=== PATIENT | female | born 1985 | race Caucasian/White ===

== ENCOUNTER 2018-11-27 00:53 | Emergency (ER) | payer MEDICARE ==
[~2018-11-27] VITALS: Ht 160 cm; Wt 113.6 kg
[2018-11-27 00:57] VITALS: BP 118/76; TEMP 97.6
[2018-11-27] MEDS ORDERED: LORYNA 3 MG-0.01 TAB PO (01:23)
[2018-11-27] MEDS ORDERED: CALCIUM 600MG+D1 TAB PO (01:24)
[2018-11-27] MEDS ORDERED: MULTI VITAMINS1 TAB PO (01:24)
[2018-11-27] MEDS ORDERED: B-121000 MCG PO (01:25)
[2018-11-27] MEDS ORDERED: MASON NATURAL2000 IU PO (01:25)
[2018-11-27] MEDS ORDERED: PROZAC60 MG PO (01:26)
[2018-11-27] MEDS ORDERED: ZANTAC 150MG T150 MG PO (01:26)
[2018-11-27] MEDS ORDERED: ADDERALL XR25 MG PO (01:26)
[2018-11-27] MEDS ORDERED: MIRAPEX0.5 MG PO (01:27)
[2018-11-27] MEDS ORDERED: CYTOMEL 5MC5 MCG/TAB PO (01:27)
[2018-11-27] MEDS ORDERED: INDERAL LA 60MG60 MG PO (01:27)
[2018-11-27] MEDS ORDERED: TOPAMAX 100MG100 M1 PO (01:28)
[2018-11-27] MEDS ORDERED: LIORESAL 1010 MG/TAB PO ×2 (01:28→01:34)
[2018-11-27] MEDS ORDERED: SYNTHROID0.2 MG/TAB PO (01:29)
[2018-11-27] MEDS ORDERED: SYNTHROID0.05 MG/TA PO (01:29)
[2018-11-27] MEDS ORDERED: NEXIUM 40MG40 MG PO (01:29)
[2018-11-27] MEDS ORDERED: CLARITIN 1010 MG/TAB PO (01:30)
[2018-11-27] MEDS ORDERED: MAGNESIUM500 MG PO (01:30)
[2018-11-27] MEDS ORDERED: KLONOPIN 1MG1 MG PO (01:30)
[2018-11-27] MEDS ORDERED: REGLAN 5MG T5 MG/TAB PO (01:31)
[2018-11-27] MEDS ORDERED: MELATONIN5 M1 SL (01:31)
[2018-11-27] MEDS ORDERED: APRESOLINE50 MG PO (01:33)
[2018-11-27] MEDS ORDERED: XANAX 1MG1 MG PO (01:33)
[2018-11-27] MEDS ORDERED: TYLENOL 500MG500 MG PO (01:34)
[2018-11-27] MEDS ORDERED: PHENERGAN 25 TA25 MG PO (01:35)
[2018-11-27] MEDS ORDERED: BENADRYL25 M2 PO (01:35)
[2018-11-27 03:05] LABS: COLLECTION METHOD CLEAN CATCH
[2018-11-27 03:28] LABS: PH 6 (5-8); SQUAMOUS EPITHELIAL 0-2 /hpf; URINE APPEARANCE Clear; URINE BACTERIA Rare /hpf; URINE BILIRUBIN Negative (NEGATIVE); URINE BLOOD 2+ (NEGATIVE); URINE COLOR Straw; URINE GLUCOSE Negative (NEGATIVE); URINE KETONE Negative (NEGATIVE); URINE LEUKOCYTE ESTERASE Negative (NEGATIVE); URINE NITRATE Negative (NEGATIVE); URINE PROTEIN(semi-quant) Negative (NEGATIVE); URINE RBC None Seen /hpf; URINE UROBILINOGEN Negative (NEGATIVE)
[2018-11-27] MEDS ORDERED: MACROBID 1100 MG/CAP PO (03:59)
[2018-11-27] MEDS ORDERED: PYRIDIUM200 M1 PO (03:59)
[2018-11-27 04:19] VITALS: PULSE 80
== END 2018-11-27 04:19 | disposition home or self-care (01) ==
LOC: COL.ER 00:53
PROVIDERS: Emergency Medicine
DX: R30.0 Dysuria (principal); F41.9 Anxiety disorder, unspecified; Z90.49 Acquired absence of other specified parts of digestive tract

== ENCOUNTER → 2021-10-18 | Outpatient (CLI) | payer MEDICARE ==
[~2021-10-18] MED LIST: ADDERALL XR25 MG PO; APRESOLINE50 MG PO; B-121000 MCG PO; BENADRYL25 M2 PO; CALCIUM 600MG+D1 TAB PO; CLARITIN 1010 MG/TAB PO; CYTOMEL 5MC5 MCG/TAB PO; INDERAL LA 60MG60 MG PO; KLONOPIN 1MG1 MG PO; LIORESAL 1010 MG/TAB PO; LORYNA 3 MG-0.01 TAB PO; MACROBID 1100 MG/CAP PO; MAGNESIUM500 MG PO; MASON NATURAL2000 IU PO; MELATONIN5 M1 SL; MIRAPEX0.5 MG PO; MULTI VITAMINS1 TAB PO; NEXIUM 40MG40 MG PO; PHENERGAN 25 TA25 MG PO; PROZAC60 MG PO; PYRIDIUM200 M1 PO; REGLAN 5MG T5 MG/TAB PO; SYNTHROID0.05 MG/TA PO; SYNTHROID0.2 MG/TAB PO; TOPAMAX 100MG100 M1 PO; TYLENOL 500MG500 MG PO; XANAX 1MG1 MG PO; ZANTAC 150MG T150 MG PO
[2021-10-18 13:07] LABS: HEMATOCRIT 42.3 % (37.0-47.0); HEMOGLOBIN 13.7 g/dl (12.5-16.0); MEAN CELL VOLUME 93 fl (80.0-100.0); MEAN CORPUSCULAR HEMOGLOBIN 30 pg (27-31); MEAN CORPUSCULAR HGB CONC 32 g/dl (33.0-37.0); MEAN PLATELET VOLUME 9.7 fl (7.4-10.4); PLATELET COUNT 285 K/mm3 (130-400); RED BLOOD COUNT 4.55 M/mm3 (4.10-5.30); REDCELL DISTRIBUTION WIDTH-CV 12.8 % (11.5-14.5)
[2021-10-18 13:20] LABS: ALBUMIN 3.2 gm/dL (3.5-5.0); BILIRUBIN,TOTAL 0.3 mg/dL (0.2-1.2); CALCIUM 8.8 mg/dL (8.4-10.2); CHOLESTEROL RISK RATIO 3.4; CREATININE, serum 0.89 mg/dL (0.57-1.11); POTASSIUM 3.9 mmol/L (3.5-4.5); TOTAL PROTEIN 7.3 gm/dL (6.2-8.1)
[2021-10-18 13:39] LABS: THYROID STIMULATING HORMONE 1.35 uIU/mL (0.350-4.940)
== END ==
LOC: COL.LAB 12:14
DX: I10 Essential (primary) hypertension (principal); E03.9 Hypothyroidism, unspecified; E66.01 Morbid (severe) obesity due to excess calories

== ENCOUNTER → 2021-11-03 | Outpatient (CLI) | payer MEDICARE | LOC: COL.RAD 07:40 | DX: K76.0 Fatty (change of) liver, not elsewhere classified (principal); Z90.49 Acquired absence of other specified parts of digestive tract ==

== ENCOUNTER 2022-10-18 10:24 | Day surgery (SDC) | payer MEDICARE ==
[~2022-10-18] VITALS: Ht 162.6 cm; Wt 113.1 kg
[2022-10-18] MEDS ORDERED: COMPAZINE 110 MG/TAB PO (10:54)
[2022-10-18 11:35] VITALS: BP 130/66; PULSE 72; TEMP 98.7
[2022-10-18 11:50] VITALS: BP 115/75; PULSE 72
[2022-10-18 12:05] VITALS: BP 110/65; PULSE 72
--- NOTE | 2022-10-18 12:15 | NUR ---
1135 RETURNS TO ROOM 5 PER CART. AWAKE, ALERT. AMBULATES TO RECLINER WITH STANDBY ASSIST. RESP UNLABORED. DENIES ABD PAIN, NAUSEA OR DYSPHAGIA. VITAL SIGNS OBTAINED. CALL LIGHT AT SIDE. MOTHER IN ROOM. 1145 TOLERATES PO SODA AND PUDDING WITHOUT NAUSEA. SWALLOWS WITHOUT DIFFICULTY. 1150 DR. RAMIREZ HERE TO VISIT WITH PATIENT. 1200 DISCHARGE INSTRUCTIONS REVIEWED. PATIENT VERBALIZES UNDERSTANDING. COPY PROVIDED INDISCHARGE FOLDER. 1208 DRESSES SELF
[2022-10-18 13:15] VITALS: BP 131/85; PULSE 75; TEMP 98.7
== END 2022-10-18 12:15 | disposition home or self-care (01) ==
LOC: SDCO 10:24
DX: K29.50 Unspecified chronic gastritis without bleeding (principal); K44.9 Diaphragmatic hernia without obstruction or gangrene; K21.9 Gastro-esophageal reflux disease without esophagitis; I10 Essential (primary) hypertension
CPT/HCPCS: J2704

== ENCOUNTER → 2022-12-29 | Outpatient (CLI) | payer MEDICARE ==
[~2022-12-29] MED LIST changes: +COMPAZINE 110 MG/TAB PO
== END ==
LOC: COL.LAB 13:01
DX: Z01.89 Encounter for other specified special examinations (principal)